=== PATIENT | female | born 1990 | race Caucasian/White ===

== ENCOUNTER 2017-01-06 21:47 | Emergency (ER) | payer MEDICAID ==
[~2017-01-06] VITALS: Ht 160 cm; Wt 68.0 kg
[2017-01-06 21:54] VITALS: BP 125/77
--- NOTE | 2017-01-06 22:10 | NUR ---
26Y F PRESENT TO ER C/O CP WHEN COUGHING AND DEEP BREATHING. COUGH X3 DAYS. PAIN 6/10 IN SCALE.
--- NOTE | 2017-01-06 22:11 | NUR ---
PT TAKEN TO [facility]
--- NOTE | 2017-01-06 22:14 | NUR ---
Dr. Daniels evaluating patient
[2017-01-06 22:17] VITALS: BP 119/72
--- NOTE | 2017-01-06 22:17 | NUR ---
Patient discharged with v/s stable. Written and verbal after care instructions given and explained. Patient alert, oriented and verbalized understanding of instructions. Ambulatory with steady gait. All questions addressed prior to discharge. ID band removed. Patient advised to follow up with PMD. Rx of AUGMENTIN 875MG PO, PROMETHAZINE DM 6.25MG-15ML/5ML PO given. Patient educated on indication of medication including possible reaction and side effects. Opportunity to ask questions provided and answered.
== END 2017-01-06 22:17 | disposition home or self-care (01) ==
LOC: MED 21:47
DX: J20.9 Acute bronchitis, unspecified (principal)